=== PATIENT | female | born 1925 | race Caucasian/White ===

== ENCOUNTER 2016-06-22 11:35 | Observation (INO) | payer OTHER ==
[2016-06-22] MEDS ORDERED: BACITRACIN IRRIGATION/NS 50,000 UNITS/1,000 ML BTL IRR ONE (11:51)
[2016-06-22] MEDS ORDERED: DIAZEPAM 5 MG TAB PO ONE (11:51)
[2016-06-22] MEDS ORDERED: NS 1,000 ML IV ONE (11:51)
[2016-06-22] MEDS ORDERED: diphenhydrAMINE 25 MG CAP PO ONE (11:51)
[2016-06-22] MEDS ORDERED: ceFAZolin 2 GM/DEXTROSE 100 ML IV ONE (11:51)
--- NOTE | 2016-06-22 12:01 | CPEKG ---
Heart Rate: 55 RR Interval: 1091 P-R Interval: 160 QRSD Interval: 138 QT Interval: 540 QTC Interval: 517 P [place]: 83 QRS [place]: -78 T Wave [place]: 109 EKG Severity - ABNORMAL ECG - EKG Impression: ATRIAL-SENSED VENTRICULAR-PACED RHYTHM Electronically Signed By: Checo Lyn 23-Jun-2016 13:54:05
[2016-06-22] MEDS ORDERED: LIDOCAINE 1% 30 ML SDV ONE ×2 (12:13→13:34)
[2016-06-22] MEDS ORDERED: MIDAZOLAM 2 MG/2 ML VIAL ONE (12:13)
[2016-06-22] MEDS ORDERED: BUPIVACAINE 0.5% 30 ML SDV ONE (12:14)
[2016-06-22] MEDS ORDERED: fentaNYL 100 MCG/2 ML INJ ONE (12:14)
[2016-06-22] MEDS ORDERED: LIDO/EPI 1% **for epidural** 30 ML SDV ONE (12:14)
[2016-06-22 12:20] LABS: % IMMATURE GRANULYOCYTES 0.4 % (0.0-1.1); ABSOLUTE IMMATURE GRANULOCYTES 0.03 10^3/uL (0.00-0.10); ADD DIFF? NO; ADD MORPH? NO; ADD SCAN? NO; ATYPICAL LYMPHOCYTE FLAG 0 (0-99); FRAGMENT RBC FLAG 0 (0-99); HEMATOCRIT 37.1 % (38.0-47.0); LEFT SHIFT FLG 0 (0-99); LIPEMIA HEMOLYSIS FLAG 80 (0-99); MEAN CELL HEMOGLOBIN 30.2 pg (27.9-34.1); MEAN CELL HEMOGLOBIN CONCENTR. 32.3 g/dL (32.4-36.7); MEAN CELL VOLUME 93.5 fL (81.5-99.8); MEAN PLATELET VOLUME 11.7 fL (8.7-11.7); PLATELET CLUMPS FLAG 0 (0-99); PLATELET COUNT 182 10^3/uL (150-400); RED BLOOD CELL COUNT 3.97 10^6/uL (4.18-5.33); RED CELL DISTRIBUTION WIDTH 16.3 % (11.5-15.2)
[2016-06-22 12:26] LABS: INR 1.9 (0.83-1.16); PROTIME(PATIENT) 21.9 SEC (12.0-15.0)
[2016-06-22 12:39] LABS: ANION GAP 12 mEq/L (8-16); CALCIUM 8.9 mg/dL (8.5-10.4); CARBON DIOXIDE 26 mEq/l (22-31); CHLORIDE 104 mEq/L (97-110); CREATININE 1.5 mg/dL (0.6-1.0); GLOMERULAR FILTRATION RATE 33; GLUCOSE 234 mg/dL (70-100); POTASSIUM 4.4 mEq/L (3.5-5.2); SODIUM 142 mEq/L (134-144)
[2016-06-22] MEDS ORDERED: hydrALAZINE 20 MG/ML VIAL IVP ONE ×2 (12:45)
[2016-06-22] MEDS ORDERED: OXYCODONE/APAP 5/325 TAB PO PRN (14:04)
[2016-06-22] MEDS ORDERED: ONDANSETRON 4 MG/2 ML VIAL IVP PRN (14:04)
[2016-06-22] MEDS ORDERED: ACETAMINOPHEN 325 MG TAB PO PRN (14:04)
[2016-06-22] MEDS ORDERED: ATROPINE SULFATE 1 MG/10 ML SYR ONE (14:27)
[2016-06-22] MEDS ORDERED: NITROGLYCERIN 0.4 MG BTL SL ONE (14:36)
[2016-06-22] MEDS ORDERED: PARAMETERS MISC PRN (16:43)
[2016-06-22] MEDS ORDERED: D50W 25 GM/50 ML SYR IVP PRN (16:43)
[2016-06-22] MEDS: INSULIN LISPRO 100 UNIT/1 ML VIAL STANDARD SC SCH (18:32)
[2016-06-22] MEDS: ROSUVASTATIN CALCIUM 20 MG TAB PO SCH (18:35)
[2016-06-22] MEDS: GABAPENTIN 300 MG CAP PO SCH ×2 (18:35→20:44)
[2016-06-22] MEDS: VENLAFAXINE XR 75 MG CAP PO SCH ×2 (19:50→20:45)
[2016-06-22] MEDS: WARFARIN SODIUM 3 MG TAB PO SCH (20:45)
[2016-06-22] MEDS: ALLOPURINOL 100 MG TAB PO SCH (20:45)
[2016-06-22] MEDS: BISOPROLOL FUMARATE 5 MG TAB PO SCH (20:45)
[2016-06-22] MEDS: INSULIN GLARGINE 100 UNITS/ML SYRINGE SC SCH (20:54)
[2016-06-22] MEDS ORDERED: CALCITRIOL 0.25 MCG CAP PO SCH (21:00)
[2016-06-23] MEDS: LEVOTHYROXINE 25 MCG TAB PO SCH (06:01)
[2016-06-23] MEDS: VENLAFAXINE XR 75 MG CAP PO SCH ×2 (08:12→20:16)
[2016-06-23] MEDS: CHOLECALCIFEROL VIT D3 1,000 UNITS TAB PO SCH (08:12)
[2016-06-23] MEDS: PANTOPRAZOLE SODIUM 40 MG TAB PO SCH (08:13)
[2016-06-23] MEDS: MAGNESIUM OXIDE 400 MG TAB PO SCH (08:14)
[2016-06-23] MEDS: FUROSEMIDE 20 MG TAB PO SCH (08:14)
[2016-06-23] MEDS: GABAPENTIN 300 MG CAP PO SCH ×4 (08:14→20:15)
[2016-06-23] MEDS: BISOPROLOL FUMARATE 5 MG TAB PO SCH ×2 (08:14→20:18)
[2016-06-23] MEDS: LOSARTAN POTASSIUM 50 MG TAB PO SCH (08:14)
[2016-06-23] MEDS: PRESERVISION AREDS2 FORMULA EYE VIT 1 EACH PO SCH (08:14)
[2016-06-23] MEDS: ALLOPURINOL 100 MG TAB PO SCH ×2 (08:15→20:16)
[2016-06-23] MEDS: FERROUS SULFATE 325 MG TAB PO SCH (08:15)
[2016-06-23] MEDS: ASCORBIC ACID 500 MG TAB PO SCH (08:15)
[2016-06-23] MEDS: INSULIN LISPRO 100 UNIT/1 ML VIAL STANDARD SC SCH ×3 (08:24→17:56)
[2016-06-23] MEDS: INSULIN GLARGINE 100 UNITS/ML SYRINGE SC SCH ×2 (08:25→22:08)
[2016-06-23] MEDS ORDERED: ASCORBIC ACID PO SCH (09:00)
[2016-06-23] MEDS ORDERED: VITAMIN A PO SCH (09:00)
[2016-06-23] MEDS ORDERED: VITAMIN E PO SCH (09:00)
[2016-06-23] MEDS ORDERED: [UNRECOGNIZED DRUG - OTHER] PO SCH (09:00)
[2016-06-23] MEDS ORDERED: CUPRIC OXIDE PO SCH (09:00)
[2016-06-23] MEDS ORDERED: ZINC OXIDE PO SCH (09:00)
--- NOTE | 2016-06-23 09:50 | EPPROC ---
Electrophysiology Procedure Note: PROCEDURE PERFORMED: * AV Pacemaker generator change * Temporary pacemaker wire INDICATION: Pacemaker generator at JEANA Bradycardia PROCEDURE NOTE: Patient presented to the cardiac catheterization laboratory in a fasting, postabsorptive state. LA administered. Using usual technique, RFV access was obtained. Using usual technique, temporary pacemaker wire was placed. The left infraclavicular area was prepped and draped in the usual sterile fashion. Lidocaine plus bupivacaine was used for local anesthesia. Using a combination of blunt and sharp dissection and electrocautery, the dissection was carried down to the prepectoral fascia and the existing pacemaker pocket was opened. The pacemaker generator was disconnected from the leads and the lead thresholds and impedance were checked. The pacemaker pocket was copiously irrigated with antibiotic solution. The pocket was again inspected for any bleeding. The leads were attached to the pacemaker securely. The pacemaker was inserted into the pocket and secured in place with a nonabsorbable suture. The pacemaker pocket was closed in 3 layers with absorbable monocryl sutures. Appropriate dressing was applied. The patient left the cardiac catheterization laboratory in stable condition. Serial Numbers: * Device [employer]ronik Grid Net [id number] * Atrial Lead Medtronic 4076 [id number] * Ventricular Lead Medtronic 4076 [id number] Stimulation Thresholds & Impedance Measurements: * Atrial Lead 3.4mV, 0.6@0.4ms, 351 Ohms * Ventricular Lead 7.7 mV, 0.8@0.4ms, 409Ohms Calvin Pacing Parameters * Pacing mode DDDR * Lower rate 60 * Upper tracking rate 130 * Upper sensor rate 130
--- NOTE | 2016-06-23 10:48 | CPEKG ---
Heart Rate: 69 RR Interval: 870 QRSD Interval: 138 QT Interval: 464 QTC Interval: 497 QRS [place]: -77 T Wave [place]: 91 EKG Severity - ABNORMAL ECG - EKG Impression: AFIB/FLUTTER AND VENTRICULAR-PACED RHYTHM Electronically Signed By: Checo Lyn 23-Jun-2016 13:53:03
[2016-06-23 10:50] LABS: HEMATOCRIT 37.8 % (38.0-47.0); HEMOGLOBIN 12.4 g/dL (12.6-16.3); MEAN CELL HEMOGLOBIN 30.3 pg (27.9-34.1); MEAN CELL HEMOGLOBIN CONCENTR. 32.8 g/dL (32.4-36.7); MEAN CELL VOLUME 92.4 fL (81.5-99.8); RED BLOOD CELL COUNT 4.09 10^6/uL (4.18-5.33); RED CELL DISTRIBUTION WIDTH 16.2 % (11.5-15.2)
[2016-06-23] MEDS ORDERED: FUROSEMIDE 40 MG/4 ML VIAL IVP ONE ×2 (11:02→16:29)
[2016-06-23 11:22] LABS: CALCIUM 8.8 mg/dL (8.5-10.4); CARBON DIOXIDE 27 mEq/l (22-31); CHLORIDE 103 mEq/L (97-110); CREATININE 1.3 mg/dL (0.6-1.0); GLOMERULAR FILTRATION RATE 39; GLUCOSE 220 mg/dL (70-100); SODIUM 140 mEq/L (134-144)
[2016-06-23 11:33] LABS: ANION GAP 10 mEq/L (8-16); POTASSIUM 4.1 mEq/L (3.5-5.2)
[2016-06-23] MEDS: amLODIPine BESYLATE 5 MG TAB PO SCH (12:44)
--- NOTE | 2016-06-23 14:38 | ECHO ---
[id number] + + [address] : : [place] [address] : : [phone] + Adult Echocardiographic Report + ------+ :Name: JESSICA HARGROVE SStudy Date: 06/23/2016 10:22 AM BP: 171/95 mmHg : : Hospital Admission Number: [id number] Locatio n: 206: :: 1925 Gender: Female Height: 63 in : :Age: 89 yrs Race: WH Weight: 160 lb : :Reason For Study: incr sob, known MR : : BSA: 1.8 meters 2 : :History: s/p generator change : + ------+ MMode/2D Measurements \T\ Calculations IVSd: 1.1 cm RVDd: 3.2 cm FS: 30.3 % LVOT diam: 1.9 cm LVPWd: 1.3 cm LVIDd: 4.0 cm EDV(Teich): 68.3 ml LVOT area: 2.8 cm2 LVIDs: 2.8 cm ESV(Teich): 28.4 ml EF(Teich): 58.3 % Normal Measurement Values: + + :LVIDd (3.5-5.7cm) IVSd (0.6-1.1cm) LVPWd (0.6-1.1cm) Aortic Root (2.0-3.7cm)Left Atrium (1.5-4.0cm): :LV Vol(d) (76-115ml) LV Vol(s) (29-48ml) Ejec Fraction (50-65%)PV Cain (0.6- 1.2m/s) TV Cain (0.4-1.0m/s) : :MV E Cain (0.8-1.0m/s)MV A Cain (0.3-1.0m/s)LVOT Cain (0.7-1.2m/s) Asc Ao Cain ( 0.9-1.8m/s) : + + Doppler Measurements \T\ Calculations MV E max cain: Ao V2 max: LV V1 max: PA V2 max: 122.9 cm/sec 132.7 cm/sec 87.9 cm/sec 57.8 cm/sec MV A max cain: Ao max P.0 mmHgLV V1 max PG: PA max P.7 cm/sec FLORINDA(V,D): 1.8 cm2 3.1 mmHg 1.3 mmHg MV E/A: 1.9 MV dec time: 0.17 sec TR max cain: 349.9 cm/sec TR max P.0 mmHg RAP systole: 10.0 mmHg RVSP(TR): 59.0 mmHg Left Ventricle The left ventricle is normal in size and function. There is mild concentric left ventricular hypertrophy. Ejection Fraction = 60%. No regional wall motion abnormalities noted. Right Ventricle The right ventricle is normal in size and function. There is a pacemaker lead in the right ventricle. Atria The left atrium is mild to moderately dilated. Right atrial size is normal. There is a catheter/pacemaker lead seen in the right atrium. A dilated inferior vena cava suggests increased right atrial pressure. Mitral Valve Thickened mitral valve leaflets with fixed posterior leaflet. There is moderate to severe mitral annular calcification. There is no mitral valve stenosis. There is mild to moderate mitral regurgitation. Tricuspid Valve The tricuspid valve is normal in structure and function. There is no tricuspid stenosis. There is moderate tricuspid regurgitation. Right ventricular systolic pressure is 59mmHg. There is Doppler evidence for moderate pulmonary hypertension. Aortic Valve The aortic valve is trileaflet. There is mild aortic valve calcification. There is no aortic stenosis. Trace aortic regurgitation. Pulmonic Valve The pulmonic valve is not well visualized. Great Vessels The aortic root is normal size. Pericardium/Pleural trivial pericardial effusion. There is a moderate pleural effusion. Conclusion A two-dimensional transthoracic echocardiogram with M-mode and Doppler was performed. The left ventricle is normal in size and function. There is mild concentric left ventricular hypertrophy. Ejection Fraction = 60%. The left atrium is mild to moderately dilated. Thickened mitral valve leaflets with fixed posterior leaflet. There is mild to moderate mitral regurgitation. There is moderate tricuspid regurgitation. Right ventricular systolic pressure is 59mmHg. There is Doppler evidence for moderate pulmonary hypertension. Trace aortic regurgitation. trivial pericardial effusion. There is a moderate pleural effusion. No significant change since previous echocardiogram at [facility] 08-06-15 except the estimated right heart pressures have increased from 48mmHg to 59mmHg, and she appears to be in atrial fibrillation at the time of this study. Final Reading Physician: Stephon Pham signed on 06/23/2016 02:37 PM Ordering Physician: Mian Madrigal Performed By: Jaki Banuelos
[2016-06-23] MEDS ORDERED: POTASSIUM CL 20 MEQ/15 ML UDCUP PO ONE (16:30)
--- NOTE | 2016-06-23 16:55 | PDCARPN ---
Cardiology Progress Note Chief Complaint: Patient reports shortness of breath. Assessment/Plan: Assessment: 89-year-old female with significant past history of CAD, previous PCI and stenting of RCA, paroxysmal atrial fibrillation with previous AV node ablation and dual chamber pacemaker implantation, hyperlipidemia, type 2 diabetes, valvular heart disease (moderate mitral annular calcification with fixed posterior leaflet, [id number] MR, mild TR. Admitted to the hospital on June 22 due to pacemaker hitting JEANA. No complications during procedure, patient stay tonight due late recovery. Per nursing staff, patient mildly confused throughout the evening, and into the morning. SpO2 on room air down to mid 80s. She has improved as the day has progressed. She is now AOOX3. She converted into AFib on arrival to PCU, with adequate rate control (V paced) . Echocardiogram done this morning showing LV is normal in size and function, mild concentric LVH, EF 60%, LA mild to moderately dilated, [id number] MR , moderate TR, RVSP 59 mm of mercury, trace AI, trivial pericardial effusion, moderate pleural effusion. In comparison to previous echo 07/2015, no significant change except elevated RVSP. Chest x-ray showing congestive heart failure versus bilateral lower and pneumonia. Her blood pressures of also been elevated with systolic running 170s. Patient reports improvement in shortness of breath and mentation additional IV Lasix given this morning. She denies of any chest pressure or pain. 1. Complete heart block: Pacemaker generator change yesterday, incision intact with no redness, swelling, drainage. Device check done postprocedure functioning within normal limits. 2. Hypoxia: JVD on physical examination, increased RVSP on echo, Improved with a.m. dose of IV Lasix, repeat this afternoon. 1 time potassium supplement given. Have asked nursing to do incentive spirometer q.1 hour while awake 3. CAD: Denies of any chest pressure or pain, no wall motion abnormality noted on echo. Patient not on aspirin due to being on warfarin. On beta-maya. 4. Atrial fibrillation: Past history of AV node ablation comma ppm implantation , going in and out of AFib, on bisoprolol. Restarted on warfarin therapy, INR subtherapeutic yesterday, repeat INR in a.m. 5. Diabetes: Home long-term acting medications, plus sliding scale. Fingersticks a.c. and HS 6. Decreased mentation: Improved with diuresis and activity. Back to baseline. 7. Hyperlipidemia: On home dose of Crestor. 8. Hypertension: Systolic blood pressure running in the 170-180, continue on home medications no improvement, started on amlodipine at 5 mg p.o. q.day Patient has improved this afternoon, but continues to require oxygen, will plan for her to spin 1 more night, re-evaluate in morning, more likely will be able to be discharged home. 06/23/16 16:52 Subjective: Patient reports shortness of breath, but has improved with diuresis. Denies of any chest pressure or pain, palpitations, lightheadedness, near-syncope or syncopal events. Reviewed/Discussed With: family (Patient's son and fmugokjo-go-ytw), other (Dr Cordero) Objective: Vital Signs (8 Hrs) Temp Pulse Resp BP Pulse Ox 06/23/16 13:48 70 85 L 06/23/16 12:27 185/65 H 06/23/16 11:35 37.2 C 69 20 198/68 H 92 Intake/Output (24 Hrs) 06/22/16 06/23/16 06/24/16 05:59 05:59 05:59 Intake Total 250 120 Output Total 250 950 Balance 0 -830 Intake: Oral (ml) 250 120 Output: Urine (ml) 250 950 Toilet 250 950 Other: Weight 72.575 kg Number of Voids Toilet 3 Result Diagrams: 06/23/16 10:45 06/24/16 04:00 - Physical Exam Constitutional: WDWN, no apparent distress Ears, Nose, Mouth, Throat: moist mucous membranes Cardiovascular: regular rate and rhythm, no rubs, systolic murmur (2/6 left sternal border), jugular vein distention (6-7 cm above sternal notch at 45 degree angle) Peripheral Pulses: 1+: dorsalis-pedis (R), dorsalis-pedis (L), 2+: carotid (R), carotid (L) Respiratory: other (Diminished in bases bilateral, no rhonchi, rales, or wheezing noted.) Gastrointestinal: normoactive bowel sounds Skin: no rashes, warm, other (Left upper chest, distal to sternum, pacemaker insertion, dressing clean dry and intact with no redness, swelling or drainage.) Neurologic: AAOx3 Psychiatric: cooperative, interactive, following commands ICD10 Worksheet Patient Problems: Problems Problem Status Onset CAD (coronary artery disease) Acute Pacemaker at end of battery life Acute Third degree heart block Acute - ICD10 Problem Qualifiers (1) Third degree heart block (2) Pacemaker at end of battery life (3) CAD (coronary artery disease) Qualifiers: Coronary Disease-Associated Artery/Lesion type: C Pala vs. transplanted heart: N Associated angina: A
[2016-06-23] MEDS: ROSUVASTATIN CALCIUM 20 MG TAB PO SCH (17:55)
[2016-06-23 20:15] VITALS: PULSE 69
[2016-06-23] MEDS: WARFARIN SODIUM 3 MG TAB PO SCH (20:17)
[2016-06-24] MEDS: LEVOTHYROXINE 25 MCG TAB PO SCH (04:28)
[2016-06-24 04:39] LABS: ANION GAP 8 mEq/L (8-16); CALCIUM 8.2 mg/dL (8.5-10.4); CARBON DIOXIDE 29 mEq/l (22-31); CHLORIDE 101 mEq/L (97-110); CREATININE 1.4 mg/dL (0.6-1.0); GLOMERULAR FILTRATION RATE 35; GLUCOSE 147 mg/dL (70-100); POTASSIUM 3.5 mEq/L (3.5-5.2); SODIUM 138 mEq/L (134-144)
[2016-06-24 04:42] LABS: INR 2.22 (0.83-1.16); PROTIME(PATIENT) 24.8 SEC (12.0-15.0)
[2016-06-24 08:16] VITALS: BP 162/69; RESP 16; TEMP 98.2
[2016-06-24] MEDS: INSULIN LISPRO 100 UNIT/1 ML VIAL STANDARD SC SCH ×2 (08:28→12:36)
[2016-06-24] MEDS: ASCORBIC ACID 500 MG TAB PO SCH (08:29)
[2016-06-24] MEDS: PRESERVISION AREDS2 FORMULA EYE VIT 1 EACH PO SCH (08:29)
[2016-06-24] MEDS: GABAPENTIN 300 MG CAP PO SCH ×2 (08:29→12:37)
[2016-06-24] MEDS: INSULIN GLARGINE 100 UNITS/ML SYRINGE SC SCH (08:29)
[2016-06-24] MEDS: BISOPROLOL FUMARATE 5 MG TAB PO SCH (08:29)
[2016-06-24] MEDS: amLODIPine BESYLATE 5 MG TAB PO SCH (08:30)
[2016-06-24] MEDS: LOSARTAN POTASSIUM 50 MG TAB PO SCH (08:30)
[2016-06-24] MEDS: FUROSEMIDE 20 MG TAB PO SCH (08:30)
[2016-06-24] MEDS: MAGNESIUM OXIDE 400 MG TAB PO SCH (08:30)
[2016-06-24] MEDS: FERROUS SULFATE 325 MG TAB PO SCH (08:30)
[2016-06-24] MEDS: CHOLECALCIFEROL VIT D3 1,000 UNITS TAB PO SCH (08:30)
[2016-06-24] MEDS: PANTOPRAZOLE SODIUM 40 MG TAB PO SCH (08:30)
[2016-06-24] MEDS: VENLAFAXINE XR 75 MG CAP PO SCH (08:30)
[2016-06-24] MEDS: ALLOPURINOL 100 MG TAB PO SCH (08:31)
[2016-06-24 10:40] VITALS: O2SAT 88
--- NOTE | 2016-06-24 10:49 | PDIAF ---
- Diagnosis Diagnosis: generator change/DCHF Code Status: Do Not Resuscitate - Medication Management Discharge Medications: Medications to Continue on Transfer Allopurinol [Allopurinol 100 MG (*)] 100 mg PO BID 06/22/16 [Last Taken 06:00] Ascorbic Acid [Vitamin C 500 mg (*)] 1,000 mg PO DAILY 06/22/16 [Last Taken 10/30] Bisoprolol Fumarate [Zebeta (*)] 10 mg PO BID 06/22/16 [Last Taken 06/22/16 06: 00] Calcitriol [Calcitriol (*)] 0.25 mcg PO MOWEFR@2100 06/22/16 [Last Taken ] Cholecalciferol Vit D3 [Vitamin D3 (*)] 1,000 units PO DAILY 06/22/16 [Last Taken 06/21/16] Ferrous Sulfate [Iron] 325 mg PO DAILY 06/22/16 [Last Taken 06/21/16] Furosemide [Lasix 20 MG (*)] 20 mg PO DAILY 06/22/16 [Last Taken 06/21/16] Gabapentin [Neurontin 300 MG (*)] 600 mg PO TIDMEAL 06/22/16 [Last Taken ] Gabapentin [Neurontin 300 MG (*)] 900 mg PO HS 06/22/16 [Last Taken 06/21/16] Insulin Glargine [Lantus 100 UNITS/ML (*)] 25 units SC HS 06/22/16 [Last Taken 06/21/16] Insulin Glargine [Lantus 100 UNITS/ML (*)] 30 units SC DAILY 06/22/16 [Last Taken 06/22/16 15 UNITS] Insulin Lispro [humALOG LISPRO 100 units/ml (*)] 0 unit SC TIDMEAL 06/22/16 [ Last Taken 06/21/16] Levothyroxine [Synthroid 25 mcg (*)] 25 mcg PO DAILY06 06/22/16 [Last Taken 11/29] Losartan Potassium [Cozaar 50 mg (*)] 100 mg PO DAILY 06/22/16 [Last Taken 06/22 06:00] Magnesium Oxide [Magnesium Oxide 400 mg (*)] 400 mg PO DAILY 06/22/16 [Last Taken 06/22/16] Pantoprazole Sodium [Protonix 40mg (*)] 40 mg PO DAILY 06/22/16 [Last Taken 11/29] Rosuvastatin Calcium [Crestor 20mg (*)] 20 mg PO DAILY@1800 06/22/16 [Last Taken 06/21/16] Venlafaxine Xr [Effexor Xr 75MG (*)] 75 mg PO BID 06/22/16 [Last Taken 06/22/16 06:00] Vit A/C/E AC/Znox/Cupric Oxide [Eye Vitamin-Minerals Tablet] 1 each PO DAILY 11/29 [Last Taken 06/21/16] Warfarin Sodium [Coumadin 3MG (*)] 3 mg PO HS 06/22/16 [Last Taken 06/21/16] Acetaminophen [Tylenol 325mg (*)] 325 - 650 mg PO Q4HRS PRN #0 tab 06/24/16 [ Last Taken Unknown] amLODIPine BESYLATE [Norvasc 5 mg (*)] 5 mg PO DAILY #30 tab 06/24/16 [Last Taken Unknown] Discharge Medications: Refer to the Discharge Home Medication list for PRN reason. - Orders Services needed: Home Care, Registered Nurse, Physical Therapy Home Care Face to Face: I certify that this patient was under my care and that I had the required [id number] encounter meeting the encounter requirements on the discharge day. My findings support the fact that the patient is homebound as defined in CMS Chapter 7 Medicare Benefits Manual 30.1.1, The condition of the patient is such that there exists a normal inability to leave home and consequently, leaving home would require a considerable and taxing effort. Diet Recommendation: sodium restricted Diet Texture: Regular Texture Diet Weigh Patient: daily - Follow Up Care Current Providers and Referrals: DAMASO KWOK [Primary Care Provider] - Rich Leung MD [Medical Doctor] - (Follow up for device and wound check on June 28 at 11:00 AM [facility] Follow up with Dr Leung June 28 at 11:30 [facility])
[2016-06-24 12:27] LABS: GLUCOSE 404 mg/dL (70-100)
--- NOTE | 2016-06-24 17:40 | GDS ---
[f rep st] DISCHARGE SUMMARY DISCHARGE DIAGNOSES: 1. Complete heart block with device elective replacement indicator warranting generator change and placement of temporary pacer periprocedurally. 2. Hypoxia, now resolved on day of discharge. 3. History of coronary artery disease with previous percutaneous coronary intervention to right cor onary artery. 4. Permanent atrial fibrillation status post atrioventricular rona ablation. 5. Type 2 diabetes mellitus. 6. Altered mental status likely related to anesthesia. 7. Dyslipidemia. 8. Hypertension. PROCEDURES: 1. 06/23/2016, AV pacer generator change with simultaneous placement of temporary pacemaker wire. This was a [employer] device. 2. 06/23/2016, echocardiogram which shows EF of 60%, mild to moderately dilated left atrium, mild t o moderate mitral regurgitation. There is a fixed posterior leaflet of her mitral valve, moderate t ricuspid regurgitation, moderate pulmonary hypertension with RVSP of 59 mmHg, moderate pleural effus ion, trace aortic regurgitation. 3. 06/23/2016, chest x-ray which shows bilateral lower lobe pulmonary infiltrates with small effusi ons. HISTORY OF PRESENT ILLNESS: The patient is an 89-year-old female typically followed by Dr. Leung. She has a history of CAD with previous PCI and stenting to the RCA, paroxysmal atrial fibrillation w ith previous AV rona ablation, dual-chamber permanent pacemaker placement, dyslipidemia, type 2 macy betes mellitus. On recent device interrogation, she had tripped into elective replacement indicator last month. She was admitted for permanent pacer generator change and placement of temporary wire periprocedurally. On the day of the procedure, she was noted to be somewhat confused, hypoxic and h ad some mild CHF symptoms. She was treated with a one-time dose of IV Lasix. On day of discharge, her room air saturations are within normal limits. HOSPITAL COURSE BY PROBLEM: 1. Generator change. This was done uneventfully on 06/23/2016. 2. Hypoxia likely related to some mild fluid overload. Treated with IV Lasix in this admission. S he declines increasing her dose of her p.o. Lasix. This has been kept at 20 mg daily. 3. Hypertension. She is basically at her baseline for her blood pressures. She was started on aml odipine which she has tolerated. A prescription of this was sent to her pharmacy. RESULTS PENDING: None. DIET: Cardiac and diabetic diet recommended. ACTIVITY: As tolerated. DISCHARGE MEDICATIONS: Please see med reconciliation for complete details. She is being kept on al l her home medications, which include vitamin D3, Effexor, Protonix, magnesium, vitamin C, losartan, levothyroxine, insulin glargine, ferrous sulfate, insulin lispro, Neurontin, furosemide, warfarin, rosuvastatin, calcitriol, bisoprolol, allopurinol. She is being started on amlodipine 5 mg p.o. kody ly. She may take Tylenol as needed for incisional pain. PHYSICAL EXAMINATION: VITAL SIGNS: On day of discharge, blood pressure 162/69, heart rate of 69, r espirations 16, O2 saturation 92% on room air, temp of 98.2 degrees Fahrenheit. GENERAL: She is a very pleasant female in no apparent distress. EYES: PERRL. HEART: Regular rate and rhythm. LUNG S: Clear though diminished. Left pacer site incision with mild ecchymosis. INR on day of discharge is 2.22. BMP was sodium 138, potassium 3.5, chloride 100, CO2 of 29, BUN 37 , creatinine 1.4, glucose 147. CBC with WBC 9.94, hemoglobin 12.4, hematocrit 37.8, platelet count of 171. CONDITION AT TIME OF DISCHARGE: Stable. FOLLOWUP: 1. Follow up with Dr. Leung as scheduled. 2. Follow up with the pacer clinic as scheduled. DISCHARGE INSTRUCTIONS: Wound care instructions were given. /[id number]/MODL
== END 2016-06-24 13:17 | disposition home health service (06) ==
LOC: FCATH 11:35 → F2W 14:04
PROVIDERS: ADMIT Internal Medicine Cardiovascular Disease; ATTEND Internal Medicine Cardiovascular Disease
PROC: 0JPT0PZ Removal of Cardiac Rhythm Related Device from Trunk Subcutaneous Tissue and Fascia, Open Approach (ICD-10-PCS; principal; 2016-06-22)
PROC: 0JH606Z Insertion of Pacemaker, Dual Chamber into Chest Subcutaneous Tissue and Fascia, Open Approach (ICD-10-PCS; principal; 2016-06-22)
DX: Z45.010 Encounter for checking and testing of cardiac pacemaker pulse generator [battery] (principal); R09.02 Hypoxemia; I25.10 Atherosclerotic heart disease of native coronary artery without angina pectoris; I48.2 Chronic atrial fibrillation; E11.9 Type 2 diabetes mellitus without complications; E78.5 Hyperlipidemia, unspecified; I10 Essential (primary) hypertension; E03.9 Hypothyroidism, unspecified; Z66 Do not resuscitate
CPT/HCPCS: 33228; 71020; 93005; 93306; 97116; 97161; 97165; 97535; C1785; G0378; G8978; G8979; G8980; G8987; G8988; G8989; J0360; J0690; J1815; J2250; J3010; 82947-QW; J0461